=== PATIENT | female | born 1965 | race African-American/Black ===

== ENCOUNTER 2024-07-06 14:14 | Emergency (ER) | payer OTHER ==
[2024-07-06 14:25] VITALS: BP 114/72; PULSE 82; RESP 18; TEMP 98; BMI 23.6
[2024-07-06] MEDS ORDERED: KETOROLAC TROMETHAMINE 30 MG/1 ML VIAL ONE (14:51)
[2024-07-06] MEDS ORDERED: ACETAMINOPHEN 500 MG TABLET (FP) ONE (14:51)
[2024-07-06] MEDS ORDERED: LIDOCAINE 4% PATCH TP ONE (14:51)
[2024-07-06] MEDS: KETOROLAC TROMETHAMINE 30 MG/1 ML VIAL IM ONE (15:09)
[2024-07-06] MEDS: ACETAMINOPHEN 500 MG TABLET (FP) PO ONE (15:09)
[2024-07-06] MEDS: LIDOCAINE 4% PATCH TP ONE (15:10)
[2024-07-06] MEDS ORDERED: LIDOCAINE PATCH REMOVAL MC ONE (22:00)
== END 2024-07-06 15:21 | disposition home or self-care (01) ==
LOC: JERFT 14:14
PROC: 3E0233Z Introduction of Anti-inflammatory into Muscle, Percutaneous Approach (ICD-10-PCS; principal; 2024-07-06)
DX: M54.42 Lumbago with sciatica, left side (principal)
CPT/HCPCS: 99284-25